=== PATIENT | female | born 1990 | race Caucasian/White ===

== ENCOUNTER 2022-07-02 14:17 | Emergency (ER) | payer BC ==
[~2022-07-02] VITALS: Ht 172.7 cm; Wt 65.8 kg
--- NOTE | 2022-07-02 14:45 | NUR ---
BIBFAMILY C/O FEVER, L FLANK PAIN SINCE THIS MORNING ON BACTRIM SINCE LAST NIGHT DIAGNOSED W/ PYELONEPHRITIS YESTERDAY AT AN URGENT CARE.
[2022-07-02] MEDS ORDERED: LAMO100T17 PO (14:56)
[2022-07-02] MEDS ORDERED: SULF1TAB48 PO (14:56)
[2022-07-02] MEDS ORDERED: SERT25TA5 PO (14:56)
[2022-07-02 15:27] LABS: BASOPHILS % (AUTO) 0.2 % (0.0-2.0); HEMATOCRIT 34 % (33-45); HEMOGLOBIN 11.8 g/dL (11.5-14.8); LYMPHOCYTES # (AUTO) 0.3 K/uL (0.8-4.8); LYMPHOCYTES % (AUTO) 4.2 % (20.0-44.0); MEAN CORPUSCULAR HGB CONC 35 g/dl (31.0-36.0); MEAN CORPUSCULAR VOLUME 88 fL (82-100); MONOCYTES # (AUTO) 0.8 K/uL (0.1-1.30); MONOCYTES % (AUTO) 10.7 % (2.0-12.0); NEUTROPHILS # (AUTO) 6.6 K/uL (1.8-8.9); NEUTROPHILS % (AUTO) 84.9 % (43.0-81.0); PLATELET COUNT (AUTO) 129 K/uL (150-450); RED BLOOD CELL COUNT(AUTO) 3.89 MIL/uL (4.0-5.2); WHITE BLOOD COUNT (AUTO) 7.8 K/uL (4.3-11.0)
--- NOTE | 2022-07-02 15:29 | NUR ---
BLOOD DRAWN, URINE SAMPLE SENT TO LAB
[2022-07-02] MEDS ORDERED: KETOROLAC TROMETHAMINE INJ 30 MG/ML VIAL IV ONE (15:30)
[2022-07-02] MEDS ORDERED: CEFTRIAXONE 1 G in IV D5W 50 ML IV ONE (15:30)
[2022-07-02] MEDS ORDERED: CEFTRIAXONE 1GM BAG (ER ONLY) 1 GM/50 ML PIGGYBACK IV ONE (15:30)
[2022-07-02] MEDS ORDERED: IV NS 0.9% 1,000 ML IV ONE (15:30)
[2022-07-02 15:39] LABS: CALCIUM, SERUM 8.5 mg/dL (8.5-10.1); CREATININE 1.2 mg/dL (0.6-1.3); POTASSIUM 3.7 mmol/L (3.5-5.1)
[2022-07-02 15:49] LABS: BILIRUBIN,URINE NEGATIVE (NEGATIVE); COLOR,URINE YELLOW (YELLOW); LEUKOCYTE ESTERASE ,URINE SMALL (NEGATIVE); NITRITE, URINE NEGATIVE (NEGATIVE); PH,URINE 7.5 (5.0-8.0); PROTEIN,URINE 30 mg/dl (NEGATIVE); UGLUCOSE NEGATIVE (NEGATIVE)
[2022-07-02 16:12] LABS: BACTERIA,URINE 3+ /HPF (None Seen); WBC,URINE 21-50 /HPF (0-3)
[2022-07-02] MEDS ORDERED: KETOROLAC TROMETHAMINE 15 MG/ML VIAL ONE (16:22)
--- NOTE | 2022-07-02 17:02 | NUR ---
IV removed. Catheter intact and site benign. Pressure and 4x4 applied to site. No bleeding noted. Patient discharged to home in stable condition. Written and verbal after care instructions given. Patient verbalizes understanding of instruction.
[2022-07-02 17:03] VITALS: BP 119/73
== END 2022-07-02 17:02 | disposition home or self-care (01) ==
LOC: ER 14:17
DX: N12 Tubulo-interstitial nephritis, not specified as acute or chronic (principal); R10.32 Left lower quadrant pain; Z79.899 Other long term (current) drug therapy
CPT/HCPCS: 99284; 96365; 96375; 85025; 80048; 87086; 83605; 84703; 81001; 36415; J0696; J7060; J7030; J1885